=== PATIENT | female | born 2000 | race Caucasian/White ===

== ENCOUNTER 2021-02-08 12:03 | Outpatient (CLI) | payer OTHER, SELFPAY ==
--- NOTE | ~2021-02-08 | XR_ITS ---
EXAMINATION: XR chest 2V DATE: 02/08/2021 12:41 INDICATION: Encounter for therapeutic drug monitoring. TECHNIQUE: Frontal and lateral views of the chest were obtained. COMPARISON: None. FINDINGS: The chest demonstrates clear lungs without pneumonia, pleural effusion, or pneumothorax. Th e heart size is normal. IMPRESSION: 1. No acute cardiopulmonary disease. Reviewed, dictated and finalized at location A.
== END 2021-02-08 12:04 | disposition home or self-care (01) ==
LOC: CHSLAB 12:10
PROVIDERS: PCP Physician Assistant; Visit Provider Internal Medicine Rheumatology
DX: Z51.81 Encounter for therapeutic drug level monitoring (principal)
CPT/HCPCS: 71046

== ENCOUNTER 2021-05-23 08:47 | Outpatient (CLI) | payer OTHER, SELFPAY ==
--- NOTE | ~2021-05-23 | XR_ITS ---
EXAMINATION: XR chest 1V employee DATE: 05/23/2021 09:23 INDICATION: Employee health exam TECHNIQUE: PA view of the chest is obtained. COMPARISON: 02/08/2021 FINDINGS: The lungs are free of acute opacities. There is no pleural effusion or pneumothorax. The ca rdiomediastinal silhouette is normal. The visualized bones and soft tissues are unremarkable. IMPRESSION: 1. No acute cardiopulmonary abnormality. Reviewed, dictated and finalized at location A.
[2021-05-23 09:48] LABS: Urine Cotinine NEGATIVE
[2021-05-23 10:40] LABS: Rubella IgG Antibody 21.2 IU/ML
[2021-05-23 10:59] LABS: Hepatitis B Surface Anti Res Negative
[2021-05-26 18:15] LABS: Mumps Virus IgG Antibody <9.00 AU/mL
[2021-05-27 11:09] LABS: NIL 0.01 IU/mL; Quantiferon TB Plus, 1T NEGATIVE (NEGATIVE)
[2021-05-28 10:48] LABS: Varicella IgG Antibody <135.00 Index (>=165.00)
== END 2021-05-23 08:48 | disposition home or self-care (01) ==
PROVIDERS: PCP Physician Assistant
DX: Z02.89 Encounter for other administrative examinations (principal)
CPT/HCPCS: 80307; 86480; 86706; 86735; 86762; 86765; 86787

== ENCOUNTER → 2021-08-21 14:42 | Outpatient (CLI) | payer OTHER, SELFPAY ==
--- NOTE | ~2021-08-21 | CT_ITS ---
EXAMINATION: CT sinus wo con DATE: 08/21/2021 14:56 INDICATION: Chronic sinusitis TECHNIQUE: Computed tomography (CT) of the paranasal sinuses was performed without intravenous contra st. The dose-length product was 312.74 mGy-cm. Automated exposure control and iterative reconstructio n technique were employed. COMPARISON: None FINDINGS: There is mucosal thickening of the right maxillary sinus. The ostiomeatal unit is occluded. Left ostiomeatal unit is patent. The remainder of the paranasal sinuses are pneumatized. Mastoids ar e pneumatized. There is leftward nasal septal deviation. IMPRESSION: 1. Right maxillary sinus disease with occlusion of the ostiomeatal unit. Reviewed, dictated and finalized at location A. [employer] [employer]
== END ==
PROVIDERS: Visit Provider Otolaryngology
DX: J32.9 Chronic sinusitis, unspecified (principal); J34.2 Deviated nasal septum
CPT/HCPCS: 70486

== ENCOUNTER 2022-04-23 14:10 | Emergency (ER) | payer OTHER, SELFPAY ==
[2022-04-23 14:25] VITALS: BP 124/76; PULSE 79; RESP 16; TEMP 36.8; O2SAT 100
--- NOTE | 2022-04-23 14:31 | ED.DENTAL ---
HPI - Dental/Oral General Chief complaint: Unspecified Stated complaint: jaw pain Time Seen by Provider: 04/23/22 14:33 Source: patient Mode of arrival: ambulatory Limitations: no limitations History of Present Illness HPI Narrative: 21 y/o female presented for c/o left jaw pain worsening over the last 2 days. Endorses popping and clicking when opening mouth. Denies mouth/jaw feeling stuck or out of place. Denies injury. Also reports the pain has been present for about 2 weeks, and at the onset she had severe left ear pain. At that time she irrigated with hydrogen peroxide and the pain was better not gone. Denies tinnitus, dizziness, sore throat, fever/chills. Endorses hx RA, chronic sinus congestion. Taking Naproxen scheduled BID, and karley. Related Data Home Medications Medication Instructions Recorded Confirmed folic acid 1 mg tablet 1 mg PO DAILY 04/23/22 04/23/22 hydroxychloroquine 200 mg tablet 200 mg PO DAILY 04/23/22 04/23/22 medroxyprogesterone 150 mg/mL 150 mg IM USEASDIRECTD 04/23/22 04/23/22 intramuscular syringe naproxen 500 mg tablet 500 mg PO BID 04/23/22 04/23/22 omeprazole 20 mg capsule,delayed 20 mg PO DAILY 04/23/22 04/23/22 release sulfasalazine 500 mg tablet 1,000 mg PO BID 04/23/22 04/23/22 Allergies Allergy/AdvReac Type Severity Reaction Status Date / Time No Known Allergies Allergy Verified 04/23/22 14:34 Review of Systems Review of Systems: CONSTITUTIONAL: Denies malaise, chills, or fever. EYES: Denies visual changes, redness, or discharge. ENT: Denies rhinorrhea, congestion, sinus pain, and sore throat. Reports ear and jaw pain CARDIOVASCULAR: Denies chest pain, palpitations, or edema. RESPIRATORY: Denies cough or dyspnea. GASTROINTESTINAL: Denies abdominal pain, nausea, vomiting, diarrhea SKIN: Denies rash or itching. MUSCULOSKELETAL: Denies myalgia. NEUROLOGIC: Denies headache. All systems reviewed & are unremarkable except as noted in HPI and below PMFSH Comments At time of signature, agree with nursing past medical, surgical, social and family history. There is no relevant family history pertinent to the presenting complaint Exam Narrative: GENERAL: Well-appearing EYES: conjunctivae clear ENT: Nares clear. Mucous membranes moist. Mild preauricular swelling and tenderness with palpation; Right TM pearly aponte with normal light reflex; Left TM erythematous, bulging, with dull light reflex and fluid levels, atmospheric drier tender and erythematous; mild tragal tenderness. Oropharynx not erythematous without lesions. Tonsils not enlarged and without exudate, no drooling, no hoarseness, no trismus, uvula midline. NECK: Supple. No lymphadenopathy CHEST: Clear to auscultation, breath sounds equal. HEART: Regular rate and rhythm. SKIN: Warm, dry, no rash. NEURO: Alert and oriented x3. Course Course Emergency Course: Patient is aware of diagnosis, understands and agrees to treatment plan. Anticipatory guidance given. Patient agrees to follow-up as directed and is aware of reasons to seek care at the emergency department. Portions of this record may have been created with voice recognition software Level of Care: Express Care Visit Vital Signs Vital signs: Reviewed MDM - Dental/Oral MDM Narrative Medical decision making narrative: Advised supportive measures for AOM and TMJ, and signs/symptoms to go to the ER. Given the original presentation of left ear pain, and the PE, she is advised to take abx as directed. Pt is appropriate for outpt treatment and f/u. Differential Diagnosis Differential diagnosis: Likely other (TMJ, otitis externa, TM rupture, cholesteatoma, foreign body, auricular perichondritisotitis media, bullous myringitis, mastoiditis) Discharge Plan Discharge Clinical Impression: Otitis media Patient Disposition: Home, Self-Care Condition: Stable Instructions: Antibiotic Form, Ear Infection (ED) Additional Instructions: Take antibiotics as directed. Cont
== END 2022-04-23 14:48 | disposition home or self-care (01) ==
PROVIDERS: Emergency Provider Nurse Practitioner Family; PCP Physician Assistant
DX: H66.92 Otitis media, unspecified, left ear (principal); M06.9 Rheumatoid arthritis, unspecified
CPT/HCPCS: 99213; G0463

== ENCOUNTER 2023-01-26 14:06 | Outpatient (CLI) | payer OTHER, SELFPAY ==
[2023-01-26 14:40] LABS: Alanine Aminotransferase 14 U/L (6-35); Aspartate Amino Transferase 24 U/L (14-36)
== END 2023-01-26 14:07 | disposition home or self-care (01) ==
LOC: ANHLAB 14:11
PROVIDERS: PCP Physician Assistant; Visit Provider Podiatrist Foot & Ankle Surgery
DX: B35.1 Tinea unguium (principal)
CPT/HCPCS: 36415; 84450; 84460

== ENCOUNTER 2023-01-29 15:26 | Emergency (ER) | payer OTHER, SELFPAY ==
[2023-01-29 15:30] VITALS: BP 119/59; PULSE 81; RESP 20; TEMP 37.1; O2SAT 100
--- NOTE | 2023-01-29 15:38 | ED.NAVMDI ---
HPI - Nausea/Vomiting/Diarrhea General Chief complaint: Nausea/Vomiting/Diarrhea Stated complaint: diarrhea x 6 days Time Seen by Provider: 01/29/23 15:38 Source: patient and RN notes reviewed History of Present Illness HPI Narrative: Patient is a 22-year-old female who presents to urgent care with complaints of diarrhea for the last 6 days. Patient states that she last ate fast food on the when she moved into her new house. Patient states that she has had a lot of stress and anxiety with the move and she ?thinks it may have something to do with that?. Patient states she also just started her menstrual cycle and has been having some lower abdominal cramping. Patient currently denies any nausea, vomiting or abdominal pain. States that she is not having any urinary symptoms. Patient has been taking Imodium since yesterday. States that it initially it did help with her symptoms however today she has had approximately 6 loose stools. Patient denies any blood in stool. States it is very small amounts. No other acute complaints. Patient is actively tearful and appears very anxious. Patient aware of the plan of care. Some parts of this dictation were generated by voice recognition software and may contain typographical and/or grammatical inaccuracies. Related Data Home Medications Medication Instructions Recorded Confirmed folic acid 1 mg tablet 1 mg PO DAILY 04/23/22 01/29/23 hydroxychloroquine 200 mg tablet 200 mg PO DAILY 04/23/22 01/29/23 naproxen 500 mg tablet 500 mg PO BID 04/23/22 01/29/23 omeprazole 20 mg capsule,delayed 20 mg PO DAILY 04/23/22 01/29/23 release sulfasalazine 500 mg tablet 1,000 mg PO BID 04/23/22 01/29/23 ascorbate calcium (vitamin C) 500 500 mg PO BID 01/29/23 01/29/23 mg tablet cholecalciferol (vitamin D3) 1,250 1,250 mcg PO WEEKLY 01/29/23 01/29/23 mcg (50,000 unit) tablet fexofenadine 180 mg tablet 180 mg PO DAILY 01/29/23 01/29/23 terbinafine HCl 250 mg tablet 250 mg PO DAILY 01/29/23 01/29/23 triamcinolone acetonide 0.1 % 1 applic topical DAILY PRN Itching 01/29/23 01/29/23 topical ointment Allergies Allergy/AdvReac Type Severity Reaction Status Date / Time No Known Allergies Allergy Verified 01/29/23 15:41 Review of Systems Review of Systems: CONSTITUTIONAL: Denies fever, chills, or sweats. EYES: Denies visual changes, redness, or discharge. ENT: Denies rhinorrhea, congestion, sore throat, or otalgia. CARDIOVASCULAR: Denies chest pain, palpitations, or edema. RESPIRATORY: Denies cough or dyspnea. GASTROINTESTINAL: Reports of loose stools GENITOURINARY: Denies dysuria or hematuria. SKIN: Denies rash or itching. MUSCULOSKELETAL: Denies back pain, joint pain, or myalgia. NEUROLOGIC: Denies headache, numbness, or weakness. PSYCHIATRIC: Reports history of anxiety All other systems reviewed are negative, except as documented in HPI. PMFSH Comments At the time of my signature, I reviewed and agree with the nursing past medical, surgical, social, and family history. There is no relevant family history pertinent to the patient complaint. Exam Narrative: GENERAL: This is a well-nourished, well-developed patient, in no apparent distress. HEAD: normocephalic, atraumatic. EYES: PERRL. Sclera clear/white. Vision is grossly intact. EARS: External ears normal NOSE: External nose normal with no obvious nasal discharge, nares without redness, no rhinorrhea. THROAT: Mucous membranes moist NECK: Neck supple CARDIOVASCULAR: Regular rate and rhythm without murmurs, gallops, or rubs. RESPIRATORY: Clear to auscultation. Breath sounds equal bilaterally. No wheezes, rales, or rhonchi. GASTROINTESTINAL: Abdomen soft, non-tender, nondistended. Bowel sounds are hyperactive. No guarding. SKIN: warm, intact with no suspicious lesions or rash, good texture and turgor. NEURO: awake, alert, and oriented to person, place and time. There were no obvious focal neurologic abnormalities. EXTREMITIES:
== END 2023-01-29 16:05 | disposition home or self-care (01) ==
PROVIDERS: Emergency Provider Nurse Practitioner Family; PCP Physician Assistant
DX: R19.7 Diarrhea, unspecified (principal); K21.9 Gastro-esophageal reflux disease without esophagitis; M06.9 Rheumatoid arthritis, unspecified
CPT/HCPCS: 99211; G0463

== ENCOUNTER 2023-02-06 12:52 | Outpatient (CLI) | payer OTHER, SELFPAY | END 2023-02-06 12:53 | disposition home or self-care (01) | PROVIDERS: PCP Physician Assistant; Visit Provider Physician Assistant | DX: K58.0 Irritable bowel syndrome with diarrhea (principal) | CPT/HCPCS: 87045; 87427 ==

== ENCOUNTER 2023-03-06 11:46 | Outpatient (CLI) | payer OTHER, SELFPAY ==
--- NOTE | ~2023-03-06 | XR_ITS ---
Left ankle Technique: AP and lateral views were obtained. Clinical History: Evaluate idiopathic arthritis Findings: No acute fracture or dislocation is seen. Osseous alignment is anatomic. Ankle mortise and other visualized joint spaces are preserved. Soft tissues are otherwise unremarkable. Impression: Unremarkable left ankle. Reviewed, dictated and finalized at location . Impression: Unremarkable left ankle.
== END 2023-03-06 11:47 | disposition home or self-care (01) ==
PROVIDERS: PCP Physician Assistant
DX: M08.80 Other juvenile arthritis, unspecified site (principal); Z51.81 Encounter for therapeutic drug level monitoring
CPT/HCPCS: 73600

== ENCOUNTER 2024-02-07 13:46 | Emergency (ER) | payer OTHER, SELFPAY ==
[2024-02-07 13:50] VITALS: BP 128/60; PULSE 90; RESP 20; TEMP 36.6; O2SAT 100
--- NOTE | 2024-02-07 14:01 | ED.EAR ---
HPI - Ear Problem General Chief complaint: Ear Stated complaint: Poss ear infection Source: patient Mode of arrival: ambulatory Limitations: no limitations History of Present Illness HPI Narrative: 23-year-old female presented for complaint of right ear pain and drainage. Onset last night. She has used cotton ball and endorses yellow or clear drainage, muffled hearing, and tinnitus. Endorses a few days of nasal congestion. Took Zyrtec, flonase and mucinex. denies cough, shortness of breath, wheezing nausea, vomiting, fevers or chills. MD Complaint: ear pain Related Data Home Medications Medication Instructions Recorded Confirmed folic acid 1 mg tablet 1 mg PO DAILY 04/23/22 01/29/23 hydroxychloroquine 200 mg tablet 200 mg PO DAILY 04/23/22 01/29/23 naproxen 500 mg tablet 500 mg PO BID 04/23/22 01/29/23 omeprazole 20 mg capsule,delayed 20 mg PO DAILY 04/23/22 01/29/23 release sulfasalazine 500 mg tablet 1,000 mg PO BID 04/23/22 01/29/23 ascorbate calcium (vitamin C) 500 500 mg PO BID 01/29/23 01/29/23 mg tablet cholecalciferol (vitamin D3) 1,250 1,250 mcg PO WEEKLY 01/29/23 01/29/23 mcg (50,000 unit) tablet fexofenadine 180 mg tablet 180 mg PO DAILY 01/29/23 01/29/23 terbinafine HCl 250 mg tablet 250 mg PO DAILY 01/29/23 01/29/23 triamcinolone acetonide 0.1 % 1 applic topical DAILY PRN Itching 01/29/23 01/29/23 topical ointment Allergies Allergy/AdvReac Type Severity Reaction Status Date / Time No Known Allergies Allergy Verified 01/29/23 15:41 Review of Systems Review of Systems: CONSTITUTIONAL: Denies malaise, chills, or fever. EYES: Denies visual changes, redness, or discharge. ENT: Denies sinus pain, and sore throat. Reports ear pain, rhinorrhea, congestion CARDIOVASCULAR: Denies chest pain, palpitations, or edema. RESPIRATORY: Denies cough or dyspnea. GASTROINTESTINAL: Denies abdominal pain, nausea, vomiting, diarrhea SKIN: Denies rash or itching. MUSCULOSKELETAL: Denies myalgia. NEUROLOGIC: Denies headache. All systems reviewed & are unremarkable except as noted in HPI and below PMFSH Comments At time of signature, agree with nursing past medical, surgical, social and family history. There is no relevant family history pertinent to the presenting complaint Exam Narrative: GENERAL: Well-appearing, and in no acute distress. EYES: PERRLA, conjunctivae clear ENT: Nares clear. Mucous membranes moist. Bilateral TMs erythematous, bulging and intact; canals not erythematous, no drainage, no tragal tenderness. Oropharynx not erythematous without lesions. NECK: Supple. No lymphadenopathy CHEST: Clear to auscultation, breath sounds equal. HEART: Regular rate and rhythm. No murmur heard. SKIN: Warm, dry, no rash. NEURO: Alert and oriented x3. PSYCH: Normal mood and affect Course Course Emergency Course: Patient is aware of diagnosis, understands and agrees to treatment plan. Anticipatory guidance given. Patient agrees to follow-up as directed and is aware of reasons to seek care at the emergency department. Portions of this record may have been created with voice recognition software Level of Care: Express Care Visit Vital Signs Vital signs: Vital Signs Temperature 97.8 F 02/07/24 13:50 Pulse Rate 90 02/07/24 13:50 Respiratory Rate 20 02/07/24 13:50 Blood Pressure 128/60 02/07/24 13:50 Pulse Oximetry 100 02/07/24 13:50 Oxygen Delivery Room Air 02/07/24 13:50 Temperature 97.8 F 02/07/24 13:50 Pulse Rate 90 02/07/24 13:50 Respiratory Rate 20 02/07/24 13:50 Blood Pressure 128/60 02/07/24 13:50 Pulse Oximetry 100 02/07/24 13:50 Oxygen Delivery Room Air 02/07/24 13:50 Reviewed Medical Decision Making MDM Narrative Medical decision making narrative: discussed physical exam findings consistent with bilateral AOM. Advised supportive measures and signs/symptoms to go to the ER. Patient is appropriate for outpatient treatment and follow
== END 2024-02-07 14:10 | disposition home or self-care (01) ==
PROVIDERS: Emergency Provider Nurse Practitioner Family; PCP Physician Assistant
DX: H66.93 Otitis media, unspecified, bilateral (principal); K21.9 Gastro-esophageal reflux disease without esophagitis; M06.9 Rheumatoid arthritis, unspecified
CPT/HCPCS: 99213; G0463

== ENCOUNTER 2025-06-22 15:56 | Outpatient (CLI) | payer OTHER, SELFPAY ==
--- OUTSIDE RECORDS SUMMARY | 2025-01-10 03:30 | XMS_ITS | Continuity of Care Document ---
Author Organization [facility] [place] [place] Address [address] [place] [address] Phone Care Team Providers Care Managed Care Director Name Role Phone Lizzie Monaco OD Unavailable Unavailable Allergies, Adverse Reactions, Alerts Substance Reaction Status Criticality No Known Allergies Active No Inform ation Medications Medication Instructions Dosage Effective Dates (start - stop) Status Comments folic acid 1 mg tablet take 1 tablet by oral route every day 1 MG - Active Lamisil AT 1 % topical cream apply by topical route every day to the affected and surrounding areas of skin 0.00 - Active Katherin Allergy 180 mg tablet take 1 tablet by oral route every day 180 MG - Active Buspar BUCCAL CAPSULE - Active hydroxychloroquine 200 mg tablet take 1 tablet by oral route every day 200 MG - Active naproxen 500 mg tablet take 1 tablet by oral route 2 times every day with food 500 MG - Active omeprazole 20 mg capsule,delayed release take 1 capsule by oral route every day before a meal 20 MG - Active sulfasalazine 500 mg tablet take 1 tablet by oral route 4 times every day after meals 500 MG - Active Calcium 600 600 mg calcium (1,500 mg) tablet take 1 by oral route every day 1 - Active Procedures Procedure Date SCODI, Posterior Segment SCODI, Retina SCODI, GDX Retina SCODI, Retina SCODI, GDX Retina Advance Directives Directive Yes / No Effective Date File Name Other Directive No N/A N/A WARNING:The information contained in this section is historical and is provided for information only and does not constitute a legal document or any assurance that the information is still accurate. Please verify the information with the chaudhary of the legal document before using it for clinical purposes. Encounters Encounter Description Practice Location Reason(s) For Visit Diagnoses Date Provider Providers Copied on Encounter [facility], [address] [place] [address] [address], [place], [place], [id number], tel:[phone] SEC [facility] Professional testing only (chief complaint) No Information May-0 6- 5 Carlos Enrique OD Lizzie. [address] [place] [address] [address], [address], [place], [place], [id number], [place]. tel:[phone] Referring Provider: Fam Mcfarland OD, [facility] [address] [place], [address]. tel:[phone] [facility], [address] [place] [address] [address], [place], [place], [id number], [place] tel:[phone] SEC [facility] Professional Testing only (chief complaint) No Information May-0 - 4 Timothy OD Lyla. [address] [place] [address], [address], [place], [place], [id number], [place]. tel:[phone] Carson Pinto.Refe rring Provider: Fam Mcfarland OD, [facility] [address] [place], [address]. tel:[phone] [facility], [address] [place] [address] [address], [place], [place], [id number], [place] tel:[phone] SEC [facility] Professional testing only (chief complaint) No Information Mani-2 - 3 Quinton Valero. [address] [facility], [facility] [address], [place], [place], [id number], [place]. tel:[phone] Specialist : Carson Pinto, [address] [place], [address]. tel:[phone] erring Provider: Fam Mcfarland OD, [facility] [address] [place], [address]. tel:[phone] [facility], [address] [place] [address] [address], [place], [place], [id number], tel:[phone] SEC [facility] Professional Mac OCT only (chief complaint) No Information 1 Quinton Valero. [address] [facility], [address], [place], [place], [address], [place]. tel:[phone] Referring Provider: Fam Mcfarland OD, [facility] [address] [place], [address]. tel:[phone] [facility], [address] [place] [address] [address], [place], [place], [id number], [place] tel:[phone] SEC [facility] Professional OCT-MAC only (chief complaint) No Information 0 Pedro Pablo OD Senthil. [address] [facility], [address], [place], [address], [place]. tel:[phone] Referring Provider: Fam Mcfarland OD, [facility] [address] [place], [address]. tel:[phone] [facility], [address] [place] [address] [address], [place], [place], [id number], [place] tel:[phone] SEC [place] No Information [address]ate Russell. [id number] [place] [address], [address], [place], [place], [address], [place]. tel:[phone] Specialist : Carson Pinto, [address] [place], [address]. tel:[phone] Family History Family Member Type Diagnosis Age At Onset No Information Payers Payer name Insurance type Covered green party ID Maxx brooks(luis) Haley ([facility]) CI [id number] Social History Type Description Quantity Date Captured Comments Alcohol Use Details No Caffeine Use Details Tobacco Use Status Current non-smoker Smoking Status Never smoker Non-Smoking Tobacco Use Details : No Details Available : No Details Available Sex Female Chief Complaint And Reason For Visit From encounter dated '01/10/2025 08:30'. testing only (chief complaint). Description: The 24 year old patient presents for evaluation of testing only in the right eye and left eye. Pt referred by Dr. Bruna VELAZQUEZ for Mac OCT testing. Reason For Referral Reason For Referral No Information History Of Present Illness Encounter Date Complaint History Of Prese nt Illness testing only The 24 year old patient presents for evaluation of testing only in the right eye and left eye. Pt referred by Dr. Mcfarland OD for Mac OCT testing. Testing only The 23 year old patient presents for evaluation of Testing only in the right eye and left eye. Pt came in for MAC OCT only for high risk meds. testing only The 22 year old patient presents for evaluation of testing only in the right eye and left eye. Mac OCT only The 20 year old female presents for evaluation of Mac OCT only in the right eye and left eye. OCT-MAC only The 19 year old female presents for evaluation of OCT- MAC only in the right eye and left eye. Functional Status Date Functional Assessmen t No Information Instructions Date Instruction Additional Infor mation No Information Assessments Type Assessment Date No Information Patient Care Teams Name Effective Dates (start - stop) Status Members No Information
[2025-06-22 16:53] LABS: Alanine Aminotransferase 14 U/L (6-35); Aspartate Amino Transferase 25 U/L (14-36)
--- OUTSIDE RECORDS SUMMARY | 2025-06-22 17:47 | XMS_ITS | Clinical Summary ---
Author Organization [facility] Address [address] [place] [address] Care Team Providers Care Technical Rep Name Role Phone Tavo Dodson Primary Care Provider [phone] Byron Pinto MD Unavailable Source Comments [facility],non-owned Affiliates and Associated Physician Practices is amultiple site organization consisting of ambulatory clinics and hospital sitesin [place], [place], [place] and [place]. This disclosure is being madepursuant to the Care Everywhere program and may not contain all information available regarding this patient. Last updated 18.[facility] Allergies No known active allergies Medications * This document contains information received from the source organization and may not represent a complete record from that organization. * Be aware that medications may not be up to date on this document. Alwaysverify current medications with the patient. Fexofenadine HCl (CARLO ALLERGY PO) Take 180 mg by mouth once daily Active calcium 500 mg tablet Take 1 (one) tablet by mouth 2 times daily with morning and evening meal Active Triamcinolone Acetonide (Triamcinolone in Absorbase) 0.05 % Apply 1 Application to affected area 2 times daily 08/04/20 22 Active Cholecalcifero l (vitamin D3) 1.25 MG (29203 UT) capsule Take 1 (one) capsule by mouth every 7 days Active hydroxychloroq uine (Plaquenil) 200 MG tabletIndicati ons:EDVIN (juvenile idiopathic arthritis) (HCC) Take 1 tablet by mouth once daily 30 tablet 5 12/31/19 25 Active naproxen (Naprosyn) 500 MG tablet Take 1 tablet by mouth twice daily 180 tablet 2 03/24/20 25 Active omeprazole (PriLOSEC) 20 MG capsuleIndicat ions:Oligoarth ritis TAKE 1 CAPSULE BY MOUTH ONCE DAILY BEFORE BREAKFAST 30 capsule 5 06/01/20 25 Active Bacillus Coagulans-Inul in (Probiotic) 1-250 BILLION-MG CAPS Active Biotin 1 MG Active Cranberry 1000 MG CAPS Active Ksenia Fe 09/26 1-20 MG-MCG tablet Take 1 (one) tablet by mouth once daily 05/14/20 25 Active omeprazole (PriLOSEC) 20 MG capsuleIndicat ions:Oligoarth ritis TAKE 1 CAPSULE BY MOUTH ONCE DAILY BEFORE BREAKFAST 30 capsule 3 01/29/20 25 025 Discontinued Active Problems Problem Noted Date Diagnosed Date Encounter for therapeutic drug monitoring 2017 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 Saw therapist Xiomara Flores [address] [place], [place] [address] phone [phone]; fax [phone] last week. Plan: After Ms Flores has finished her evaluation, consider treating with antidepressants if necessary. Abnormal weight loss 12/02/2010 Overview (12/02/2010): Actually, failure to gain weight and body dysmorphism. Patient is thin but feels she is too fat and that she is ugly because of her crowded teeth. Does not eat breakfast or lunch but snacks when is in her father's home. Eats dinner there as well. Plan: Dad to have breakfast supervised and to arrange for patient to eat lunch with an adult at school. This may be difficult as patient wants to be with peers at school even though they do not speak with her during lunch. Rheumatoid arthritis 12/02/2010 Overview (11/23/2019): Overview: Overview: Rheumatoid arthritis by history. Sees Rheumatology at [facility]. Last visit 2001. Has swollen right knee with atrophy of right thigh musculature. Also has very thin upper extremities with lax ligaments and fine, thin skin. 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 BYRON PINTO [phone]. 02-16-18 ASA, biotin, folate, naproxen, omeprazole, sulfasalazine. Labs: 6.9/25.12/3299 [?}with 33% Neutrophils/260,000) - holding Actermra. F/u Aug 2018. Resolved Problems Problem Noted Date Diagnosed Date Resolved Date Rheumatoid arthritis 12/02/2010 019 Overview (07/15/2015): Rheumatoid arthritis by history. Sees Rheumatology at [facility]. Last visit 2001. Has swollen right knee with atrophy of right thigh musculature. Also has very thin upper extremities with lax ligaments and fine, thin skin. Encounters Date Type Department Care Team Description 06/01/2025 Refill [facility] - Rheumatology [address] [place] [address], [facility] [place] [address] Byron Pinto MD Refill Request from Last 3 Months Immunizations Immunization Administration Dates Next Due INFLUENZA VACCINE, TRIV. (AF LURIA, FLUZONE TRIVALENT; 6MO+) (IIV3) 08/20/2015,07/18/2014,08/18/2003,06/15,09/28/2001,07/09/2001 DTaP VACCINE IM (6wk-6yrs) 09/27/2003,,01/06/2000,11/04,1999 HIB Hep B 10/09/2000,1999,1999 Human Papilloma Virus Lkaia valent Vaccine 03/31/2016,02/24/2014,04/16/2011,11/18 INFLUENZA VACCINE 06/07/2021,06/08/2013 INFLUENZA VACCINE, CELL CULT URE, QUADR. (FLUCELVAX QUADRIVALENT; 6MO+) (CCIIV4) 05/31/2020 INFLUENZA VACCINE, QUADR. (F LUZONE; FLULAVAL; FLUARIX; AFLURIA QUADRIVALENT; 6MO+), 0.5 ML (IIV4) 06/22/2019 Influenza Intradermal 10/06/2017 MENINGOCOCAL MENINGITIS 11/18/2010 MENINGOCOCCAL ACWY (MCV4P) VAC IM 08/20/2015 MMR 09/27/2003,07/06/2000 PNEUMOCOCCAL PCV7 CONJ, PEDS 10/09/2000, 07/06/2000,05/28/2000,04/03 POLIO IPV 09/27/2003, 1,1999,09/13 TDAP (7yrs+) 11/18/2010 VARICELLA 03/24/2014,07/06/2000 Family History Medical History Relation Name Comments Thyroid Disease Father Schizophrenia Maternal Grandmother SC Mother Mental Health Mother concern for ma ternal schizophrenia, though no diagnosis at this time Relation Name Status Comments Father Maternal Grandmother Mother Social History Tobacco Use Types Packs/Day Years Used Date Smoking Tobacco: Never Smokeless Tobacco: Never Tobacco Cessation:Counseling Given: Not Answered Alcohol Use Standard Drinks/Week Comments Yes 0 (1 standard drink = 0.6 oz pur e alcohol) socially PHQ-2 Answer Date Recorded Patient Health Questionnaire-2 Score 0 03/20/2025 Comments No Sex and Gender Information Value Date Recorded Sex Assigned at Not on file 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 Gender Identity Not on file Sexual Orientation Not on file Last Filed Vital Signs Vital Sign Reading Time Taken Comments Blood Pressure 106/67 03/20/2025 1:54 PM CDT Pulse 78 03/20/2025 1:54 PM CDT Temperature 36.4 C (97.5 F) 03/20/2025 1:54 PM CDT Respiratory Rate 16 03/20/2025 1:54 PM CDT Oxygen Saturation 98% 03/20/2025 1:54 PM CDT Inhaled Oxygen Concentration - - Weight 70.8 kg (156 lb) 03/20/2025 1:54 PM CDT Height 165.1 cm (5' 5) 03/20/2025 1:54 PM CDT Body Mass Index 25.96 03/20/2025 1:54 PM CDT Plan of Treatment Upcoming Encounters Date Type Department Care Team (Late st Contact Info) Description 2025 3:20 PM CDT Office Visit [facility] - Rheumatology [address] [place] [address], [place] [phone] Byron Pinto MD [facility] [address] [facility] [place] [phone] 11/13/2025 1:20 PM CDT Office Visit [facility] - Rheumatology [address] [place] [address], [place] [phone] Byron Pinto MD [address] [facility] [address] [place] [phone] Health Maintenance Due Date Last Done Comments HIV SCREENING 2014 CHLAMYDIA/GONORRHEA SCREENING 2015 HEPATITIS C SCREENING 06/28/2017 DTAP/TDAP/TD VACCINES (7 - Td or Tdap) 11/18/2020 11/18/2010, 09/27/2003, 10/09/2000, Additional history exists COVID-19 VACCINE ( season) 2025 11/13/2022, 09/17/2021, 02/07/2021, Additional history exists INFLUENZA VACCINE (#1) 2025 , 06/07/2022, 06/07/2021, Additional history exists PAP SMEAR 06/24/2027 06/24/2024 ZOSTER VACCINE (1 of 2) 2049 HEPATITIS B VACCINE Completed 10/09/2000, 1999, 1999 HIB VACCINE Completed 10/09/2000, 10/09, 1999 PNEUMOCOCCAL VACCINE Completed 10/09/2000, 07/06/2000, 05/28/2000, Additional history exists MENINGOCOCCAL GROUPS A/C/Y/W VACCINE Completed 08/20/2015, 11/18/2010 HPV VACCINE Completed 03/31/2016, 02/06, 04/16/2011, Additional history exists DEPRESSION SCREENING Completed 03/20/2025, 01/19/2024, 04/21/2022 MENINGOCOCCAL (Group B) VACCINE SHARED DECISION-MAKING Aged Out No longer eligible based on patient's age to complete this topic Insurance [employer] Care Teams Technical Rep Relationship Specialty Start Date End Date Tavo oDdson PA [address] [place] [address] PCP - General 03/25/18 Byron Pinto MD [address] [place] [phone] Rheumatology 03/24/25
--- OUTSIDE RECORDS SUMMARY | 2025-06-22 17:47 | XMS_ITS | Clinical Summary ---
Author Organization [facility] [address] Address [address] [place] [address] Phone Care Team Providers Care Air Route Controller Name Role Phone No, Physician Primary Care Provider [phone] Fallon Phillips MD Unavailable [phone] Allergies No known active allergies Medications hydroxychloroqu ine (PLAQUENIL) 200 mg tablet take 1 tablet (200MG) by oral route every day 0 2 Active folic acid (FOLVITE) 1 mg tablet take 1 tablet (1MG) by oral route every day 0 2 Active omeprazole (PriLOSEC) 20 mg capsule TAKE ONE CAPSULE BY MOUTH TWICE DAILY 180 capsule 2 8 Active naproxen (NAPROSYN) 500 mg tablet Take 1 tablet (500 mg total) by mouth 2 Active triamcinolone (KENALOG) 0.05 % ointmentIndicat ions:Chronic vulvitis Apply 1 g (1 application total) topically 2 (two) times a day To affected area as needed for itching 30 g 3 2 Active busPIRone (BUSPAR) 10 mg tablet Take 1 tablet (10 mg total) by mouth 2 (two) times a day 3 Active calcium carbonate-vitam in D3 (Calcium 500 With D) 1,250 mg (500 mg elemental)-400 unit tablet Active cholecalciferol (VITAMIN D-3) 50,000 unit capsule Take 1 capsule (50,000 Units total) by mouth once a week Active ergocalciferol (VITAMIN D) 50,000 unit capsule Take 1 capsule (50,000 Units total) by mouth once a week 1 Active fexofenadine (CARLO) 180 mg tablet Take 1 tablet (180 mg total) by mouth daily 1 Active norethindrone-e .estradioL-iron (JUNEL FE 09/26) 1 mg-20 mcg (21)/75 mg (7) per tablet Take 1 tablet by mouth daily 28 tablet 14 5 03/22/20 26 Active Active Problems Problem Noted Date Diagnosed Date Sinusitis 09/15/2016 Overview (06/18/2017): 09-15-16 maxillary Cefdinir 20 days (on methotrexate) Hypertrophy of adenoids 09/15/2016 Overview (06/18/2017): 09-15-16 noted on Sinus XRay ENT referral Irregular menstrual cycle 08/20/2015 Overview (06/18/2017): 08/20 & light but required ten days Provera 08/20. Depo Provera Molluscum contagiosum infection 08/11/2014 Overview (06/18/2017): R leg - [facility] care maintenance 06/08/2013 Overview (06/18/2017): HCT 40.6 on 12-20-16; EBV neg. Abdominal pain 04/07/2012 Overview (06/18/2017): 06-08-13 CBC, ESR, amylase nl. 08-20-15 Supraumbilical worse with meals. Omep 20 BID. CBC (HCT 41.7), ESR (4), Chem 20, HCG nl. ?milk worse? Rheumatoid arthritis(714.0) 12/02/2010 Overview (06/18/2017): Overview: Rheumatoid arthritis by history. Sees Rheumatology at [facility]. Last visit 2001. Has swollen right knee with atrophy of right thigh musculature. Also has very thin upper extremities with lax ligaments and fine, thin skin. Depression 12/02/2010 Overview (06/18/2017): Overview: Difficulty sleeping, sad most of the time, feels unattractive because of physical attributes, angry. Saw therapist Xiomara Flores [address] [place], [place] [id number] phone [phone]; fax [phone] last week. Plan: After Ms Flores has finished her evaluation, consider treating with antidepressants if necessary. Abnormal weight loss 12/02/2010 Overview (06/18/2017): Overview: Actually, failure to gain weight and body [...] do not speak with her during lunch. Lower urinary tract infectious disease 7 Overview (06/18/2017): Related to constipation. 01/11 Sep. 10/15 Sep. History of duodenal ulcer 02/09/2002 Overview (06/18/2017): GI bleed to Hgb 4 on Naprosyn. 12-04-15 Hgb 11.5. 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 BYRON THOMAS [phone]. 02-16-18 ASA, biotin, folate, naproxen, omeprazole, sulfasalazine. Labs: 6.9/25.12/3299 [?}with 33% Neutrophils/260,000) - holding Actermra. F/u Aug 2018. Asthma 1999 Overview (06/18/2017): RSV then occais home Xopenex nebs. Resolved Problems Problem Noted Date Diagnosed Date Resolved Date Pneumonia 09/15/2016 06/26/2017 Overview (12/12/2016): Pneumonia Immunizations Immunization Administration Dates Next Due DTaP 09/27/2003, 1,01/06/2000,11/04,1999 HPV, Quadrivalent 03/31/2016, 4,04/16/2011,11/18 Hep B / HiB 10/09/2000,1999,1999 IPV 09/27/2003, 1,1999,09/13 Influenza, Split 06/08/2013 Influenza, Trivalent, IM (MDV) 5,07/18/2014,08/18/2003,06/15,09/28/2001,07/09/2001 MMR 09/27/2003,07/06/2000 Meningococcal MCV4P (Menactra) 08/20/2015 Meningococcal Polysaccharide (Menomune) 11/18/2010 Pneumococcal Conjugate 7-Valent 10/09/19 01,07/06/2000,05/28/2000,04/03 Tdap 11/18/2010 Varicella 03/24/2014,07/06/2000 Surgical History Surgery Date Site/Laterality Comments OTHER SURGICAL HISTORY Bronchiolitis RSV: Admit SEPTOPLASTY 09/07/2020 - 09/06/2021 NASAL TURBINATE REDUCTION 09/07/2021 - 09/06/2022 Medical History Medical History Date Comments Hx Other Medical 1999 Ear tubes Hx Other Medical 2001 GI bleed Hgb 4 (duodenal ulcer) Hx Other Medical 1999 Bronchiolitis R SV Family History Medical History Relation Name Comments Hyperthyroidism Father Hyperthyroid ism; Other Father's Sister Granulator cancer s /p hysterectomy (? ovarian); Schizophrenia Mother Schizophrenia; Allergies Other 2 Family history of Allergies; spring especially Hyperlipidemia Other 3 Family histor y of Hyperlipidemia; Other Other 4 Family history of Yue Gerig's disease; Thyroid disease Other 5 Family histo ry of Thyroid disease; Other Other 6 Family history of Diabetes: NO; Other Other 7 Family history of Sudden <50: NO; Coronary artery disease Other 8 Fami ly history of Coronary artery disease; RED 08/17/2014 -Mother - [place] in her 30s Relation Name Status Comments Father Father's Sister Mother Other 1 Alive Other 2 Other 3 Other 4 Other 5 Other 6 Other 7 Other 8 Social History Tobacco Use Types Packs/Day Years Used Date Smoking Tobacco: Never Smokeless Tobacco: Never Alcohol Use Standard Drinks/Week Comments No 0 (1 standard drink = 0.6 oz pur e alcohol) Comments No Sex and Gender Information Value Date Recorded Sex Assigned at Not on file 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[employer] Gender Identity Not on file Sexual Orientation Not on file Occupation Industry Job Start Date Job End Date Not on file Not on file Not on file Not on file History Length Weight Head Circum Date/Time Gestation Age D/C Weight APGARs Delivery Method Feeding 2000 7-14 product of nl : Repeat caesarean section [facility] Obstetrics History Para Term AB IAB SAB Ectopic Multiple Livin g Live Births 0 0 0 0 0 0 0 0 0 0 0 Last Filed Vital Signs Vital Sign Reading Time Taken Comments Blood Pressure 111/74 03/17/2025 11:15 AM CDT Pulse 70 03/18/2021 11:42 PM CDT Temperature 36.4 C (97.6 F) 03/18/2021 11:42 PM CDT Respiratory Rate 18 03/18/2021 11:42 PM CDT Oxygen Saturation 96% 03/18/2021 11:42 PM CDT Inhaled Oxygen Concentration - - Weight 70.8 kg (156 lb 2 oz) 03/17/2025 11:15 AM CDT Height 165.1 cm (5' 5) 06/24/2024 10:02 AM CDT Body Mass Index 25.98 06/24/2024 10:02 AM CDT Plan of Treatment Health Maintenance Due Date Last Done Comments Depression Screening 1999 Hepatitis C Screening 1999 Pneumococcal vaccine <65 (1 of 2 - PPSV23, PCV20, or PCV21) 12/04/2000 10/09/2000, 07/06/2000, 05/28/2000, Additional history exists Zoster Vaccine (1 of 2) 2018 Covid-19 Vaccine (4 - 2024-2 6 season) 2025 09/17/2021, 02/07/2021, 01/17/2021 Influenza Vaccine (#1) 2025 , 06/07/2021, 05/31/2020, Additional history exists Cervical Cancer Screening 06/24/2025 06/24/2024, 08/2020 Regular Well Visit/Exam 18-64 06/24/2025, 07/26/2021, 07/19/2020 DTaP/Tdap/Td Vaccine (8 - Td or Tdap) 09/13/2030 09/13/2020, 11/18/2010, 09/27/2003, Additional history exists Hepatitis B Screening Completed 10/09/2000 , 1999, 1999 Varicella Vaccines Completed 03/24/2014, 07/06/2000 HPV Vaccines Completed 03/31/2016, 02/06, 04/16/2011, Additional history exists Procedures Procedure Name Priority Date/Time Associated Diagnosis Comments PAP WITH REFLEX TO HIGH RISK HPV Routine 06/24/2024 10:40 AM CDT from Last 3 Months or Most Recently Relevant to Health Maintenance Results * Pap with reflex to High Risk HPV and Genotyping (Cytology Component) (06/24/2024 10:40 AM CDT) Pap test 06/24/2024 10:4 0 AM CDT 06/24/2024 10:40 AM CDT Narrative 06/30/2024 9:11 AM CDT [facility] Department of Pathology [address] [place] [address] Final Report Note to Patients: This report may contain a detailed description of human tissue sent by a health care provider to the laboratory for pathologic evaluation. The content of this report is essential for diagnosis and may provide important critical findings. This information may be unfamiliar to patients to review without a medical professional present. It is advised that the patient review this report in the presence of a health care provider who can answer questions and explain the details. Patient Name: MARIEL CABA Address: [address] [place] [address], [place] [address] Gender: F : 2000 (Age: 23) Service: Location: N : [id number] [facility] #: [id number] Patient Type: [facility] SPECIMEN Taken: 06/24/2024 Received: 06/24/2024 Accessioned:: 06/27/2024 Reported: 06/30/2024 Physician(s): MD Fallon Aragon MD Diagnosis: SOURCE OF SPECIMEN Imaged Thinprep Pap Test w/ Reflex HPV - Granulator Cytologic Material: STATEMENT OF ADEQUACY - Satisfactory for evaluation; endocervical/transformation zone component present GENERAL CATEGORIZATION: - Negative for intraepithelial lesion or malignancy INTERPRETATION: - Reactive/reparative cell changes MEERA Zheng(ASCP)Cooper Posada MD PhD Report Electronically Reviewed and Signed Out By Cooper Posada MD PhD 06/30/2024 09:11:43Specimen(s) Received: A: Imaged Thinprep Pap Test w/ Reflex HPV - Granulator Cytologic Material Clinical History: Last Menstrual Period: 06/18/24 Menstrual History: Previous Negative Pap The Pap test is a screening test used to aid in the detection of cervical cancer and its precursors. It should not be the sole means by which malignant and premalignant lesions are diagnosed. Both false negative and false positive results may occur. It also has poor sensitivity for the detection of endometrial lesions and should not be used to evaluate suspected endometrial abnormalities. For these reasons it is most important to obtain Pap tests at regular intervals. The performance characteristics of some immunohistochemical stains, fluorescence in-situ hybridization tests and immunophenotyping by flow cytometry cited in this report (if any) were determined by the Surgical Pathology Department at [facility] as part of an ongoing clinical quality assurance specialist program and in compliance with federally mandated regulations drawn from the Clinical Laboratory Improvement Act of 1988 (CLIA '88). Some of these tests rely on the use of analyte specific reagents and are subject to specific labeling requirements by the US Food and Drug Administration. Such diagnostic tests may only be performed in a facility that is certified by the Department of Health and Human Services as a high complexity laboratory under CLIA '88. The FDA has determined that such clearance or approval is not necessary. This test is used for clinical purposes. It should not be regarded as investigational or for research. Nevertheless, federal rules concerning the medical use of analyte specific reagents require that the following disclaimer be attached to the report: This test was developed and its performance characteristics determined by the Surgical Pathology Department [facility]. It has not been cleared or approved by the U. S. Food and Drug Administration. Fallon Phillips MD LAB CYTOLOGY ORDERABL ES Final Result from Last 3 Months or Most Recently Relevant to Health Maintenance Insurance [employer] Member Subscriber Plan / Payer (Ef fective 2021-Present) Name:Mariel Caba Relation to Subscriber:Child Name:Hakeem Caba W Date of :1967 (Home) Address: [address] [place] [id number] Payer ID:[id number] (NAIC) Group ID:[id number] Type:CIGNA HMO/PPO Address: [address] [place] [address] [employer] Member Subscriber Plan / Payer (Ef fective 2021-Present) Name:Mariel Caba Relation to Subscriber:Other Relationship Name:HAKEEM CABA Subscriber ID:Not on file Date of :1968 Payer ID:[id number] (NAIC) Group ID:[id number] Type:CIGNA HMO/PPO Address: [address] [address] [employer] Member Subscriber Plan / Payer (Ef fective 2021-Present) Name:Mariel Caba Relation to Subscriber:Other Relationship Name:HAKEEM CABA Subscriber ID:Not on file Date of :1968 Payer ID:[id number] Group ID:[id number] Type:COMMERCIAL Address: [place] [address] [employer]IG[employer] [facility] Care Teams Air Route Controller Relationship Specialty Start Date End Date No, Physician PCP - General 03/19/21 Fallon Phillips MD [address] [place] [address] Continuous Drier Helper Obstetrics and Gynecology 09/20/24
== END 2025-06-22 15:57 | disposition home or self-care (01) ==
LOC: ANHLAB 15:58
PROVIDERS: PCP Physician Assistant; Visit Provider Podiatrist Foot & Ankle Surgery
DX: B35.1 Tinea unguium (principal)
CPT/HCPCS: 36415; 84450; 84460